=== PATIENT | female | born 1990 | race Caucasian/White ===

== ENCOUNTER 2016-12-27 20:03 | Outpatient (CLI) | payer OTHER | END 2016-12-27 22:42 | disposition home or self-care (01) | LOC: GENOP 20:03 | PROVIDERS: Obstetrics & Gynecology | DX: O99.89 Other specified diseases and conditions complicating pregnancy, childbirth and the puerperium (principal); R10.9 Unspecified abdominal pain; O42.913 Preterm premature rupture of membranes, unspecified as to length of time between rupture and onset of labor, third trimester; Z3A.35 35 weeks gestation of pregnancy | CPT/HCPCS: 80307; 81001; 83518; 87086; G0463 ==

== ENCOUNTER 2017-01-15 05:29 | Inpatient (IN) | payer OTHER ==
[~2017-01-15] VITALS: Ht 170.2 cm; Wt 72.6 kg
[2017-01-15 06:07] LABS: RED BLOOD COUNT 4.03 M/UL (4.00-5.10); WHITE BLOOD COUNT 7.1 K/UL (4.5-11.0)
[2017-01-17 02:58] LABS: HEMOGLOBIN 9.1 gm/dl (12.3-15.3)
== END 2017-01-18 11:41 | disposition home or self-care (01) | DRG 774 ==
LOC: OB 05:29
PROVIDERS: Obstetrics & Gynecology; ADMIT Obstetrics & Gynecology
PROC: 10E0XZZ Delivery of Products of Conception, External Approach (ICD-10-PCS; principal; 2017-01-16)
PROC: 10907ZC Drainage of Amniotic Fluid, Therapeutic from Products of Conception, Via Natural or Artificial Opening (ICD-10-PCS; 2017-01-16)
PROC: 3E033VJ Introduction of Other Hormone into Peripheral Vein, Percutaneous Approach (ICD-10-PCS; 2017-01-16)
PROC: 3E0234Z Introduction of Serum, Toxoid and Vaccine into Muscle, Percutaneous Approach (ICD-10-PCS; 2017-01-16)
DX: O26.62 Liver and biliary tract disorders in childbirth (principal); O98.413 Viral hepatitis complicating pregnancy, third trimester; K83.1 Obstruction of bile duct; O99.323 Drug use complicating pregnancy, third trimester; I47.1 Supraventricular tachycardia; O72.1 Other immediate postpartum hemorrhage; Z3A.38 38 weeks gestation of pregnancy; Z37.0 Single live birth; Z23 Encounter for immunization; F11.10 Opioid abuse, uncomplicated; K59.00 Constipation, unspecified; B19.20 Unspecified viral hepatitis C without hepatic coma; O75.4 Other complications of obstetric surgery and procedures
CPT/HCPCS: 36415; 51702; 80307; 81001; 82800; 85014; 85018; 85025; 87086; 90715; J2210; J2405; J2590; J2795; J7120

== ENCOUNTER 2020-10-28 05:48 | Emergency (ER) | payer OTHER ==
[~2020-10-28 05:48] MED LIST: BUPRENORPHIN-N1 EACH SL; BUPROPION XL150 MG PO; DILTIAZEM 24HR120 M1 PO
[2020-10-28 06:48] LABS: HEMOGLOBIN 14.1 gm/dl (12.3-15.3); RED BLOOD COUNT 4.7 M/UL (4.00-5.10); WHITE BLOOD COUNT 9.3 K/UL (4.5-11.0)
[2020-10-28 07:14] LABS: BUN/CREATININE RATIO 25 (0-10)
[2020-10-28] MEDS ORDERED: ENDOCET 5-3251 EACH PO (08:37)
[2020-10-28] MEDS ORDERED: ZOFRAN ODT 4 MG4 MG SL (08:37)
== END 2020-10-28 08:54 | disposition home or self-care (01) ==
LOC: ER1 05:48
PROVIDERS: Family Medicine
DX: N13.2 Hydronephrosis with renal and ureteral calculous obstruction (principal); Z88.0 Allergy status to penicillin
CPT/HCPCS: 80053; 81001; 83690; 84703; 85025; 96374; 96375; 96376; 99284; J1170; J1885; J2270; J2405